=== PATIENT | female | born 1965 | race Caucasian/White ===

== ENCOUNTER 2023-10-23 05:55 | Day surgery (SDC) | payer MEDICAID, OTHER ==
[~2023-10-23] VITALS: Ht 175.3 cm; Wt 74.8 kg
[2023-10-23] MEDS ORDERED: SIMETHICONE 40 MG/0.6 ML ML ONE (07:27)
[2023-10-23] MEDS ORDERED: MEPERIDINE 100 MG INJ. 100 MG/ML VIAL ONE (07:28)
[2023-10-23] MEDS ORDERED: MIDAZOLAM HCL 5 MG/5 ML VIAL ONE (07:28)
[2023-10-23 13:21] VITALS: O2SAT 99
[2023-10-23 13:46] VITALS: BP_SYST 119; PULSE 60; RESP 20
== END 2023-10-23 09:17 | disposition home or self-care (01) ==
LOC: SMU 05:55 → SDS 05:55
PROVIDERS: ATTEND Internal Medicine Gastroenterology
DX: R13.10 Dysphagia, unspecified (principal); K21.9 Gastro-esophageal reflux disease without esophagitis; R07.0 Pain in throat; K29.50 Unspecified chronic gastritis without bleeding; K29.80 Duodenitis without bleeding; K44.9 Diaphragmatic hernia without obstruction or gangrene; I10 Essential (primary) hypertension; E78.5 Hyperlipidemia, unspecified; Z79.899 Other long term (current) drug therapy
CPT/HCPCS: 43248; 43239; 88305; 88312; 88313; 99152; G0378; J2250; J2175; C1769